=== PATIENT | male | born 1940 | race Caucasian/White ===

== ENCOUNTER 2021-01-01 13:15 | Emergency (ER) | payer MEDICARE ==
[~2021-01-01 13:15] MED LIST: ALDACTONE25 MG PO; ECOTRIN81 MG PO; LANTUS100 UNIT/1 SQ; LASIX40 MG PO; LEVAQUIN500 MG PO; LIPITOR TAB 1010 MG PO; PLAVIX 75 MG TA75 MG PO; PRINIVIL5 MG PO; SYNTHROID75 MCG PO; TOPROL XL50 MG PO; TYLENOL W/CODEIN1 E1 PO; VENTOLIN/PROVE0.5 ML INH
[2021-01-01 13:59] LABS: HEMOGLOBIN 15.2 gm/dl (14.0-17.5); RED BLOOD COUNT 5.37 M/UL (4.20-5.50)
[2021-01-01 14:21] LABS: BUN/CREATININE RATIO 20 (0-10)
[2021-01-01] MEDS ORDERED: OMNICEF 300 MG300 MG PO (16:08)
== END 2021-01-01 16:40 | disposition home or self-care (01) ==
LOC: ER1 13:15
PROVIDERS: Family Medicine
DX: N28.9 Disorder of kidney and ureter, unspecified (principal); N39.0 Urinary tract infection, site not specified; I25.5 Ischemic cardiomyopathy; I10 Essential (primary) hypertension; E11.9 Type 2 diabetes mellitus without complications; Z79.02 Long term (current) use of antithrombotics/antiplatelets; Z79.899 Other long term (current) drug therapy; Z95.0 Presence of cardiac pacemaker
CPT/HCPCS: 80053; 81001; 82550; 82553; 83735; 83874; 84439; 84443; 84484; 85025; 93005; 99285